=== PATIENT | male | born 1990 | race Native Hawaiian/Other Pacific Islander ===

== ENCOUNTER 2020-07-22 09:01 | Emergency (ER) | payer SELFPAY ==
[~2020-07-22] VITALS: Ht 170 cm; Wt 102.0 kg
--- NOTE | 2020-07-22 09:10 | ED General ---
General Stated Complaint: CHEST PAIN Source of Information: Patient Exam Limitations: No Limitations History of Present Illness Date Seen by Provider: Jul 22, 2020 Time Seen by Provider: 09:09 Initial Comments 29-year-old male presents with right-sided chest wall pain. Patient reports that started 6 days ago after being elbowed while playing basketball. He is tried some Tylenol for it. Presents today because it still hurts when he takes a deep breath or presses against it. He has no fevers chills cough shortness of breath or other systemic complaints. Allergies and Home Medications Allergies Coded Allergies: No Known Drug Allergies (Unverified , 07/22/20) Patient Home Medication List Home Medication List Reviewed: Yes Review of Systems Review of Systems Constitutional: No chills, No fever EENTM: see HPI Respiratory: No cough, No short of breath Cardiovascular: see HPI; No edema, No palpitations Gastrointestinal: No abdominal pain, No nausea, No vomiting Past Punzrsf-Zlimnh-Avbuqo Hx Patient Social History Recent Foreign Travel: No Contact w/Someone Who Travel: No Physical Exam Vital Signs Vital Signs - First Documented 07/22/20 09:12 Temp 36.7 Pulse 82 Resp 16 B/P (MAP) 140/96 (111) Pulse Ox 99 O2 Delivery Room Air Capillary Refill : Height, Weight, BMI Height: '" Weight: lbs. oz. kg; BMI Method: General Appearance: No Apparent Distress, WD/WN HEENT: PERRL/EOMI Neck: Non Tender, Supple Respiratory: Lungs Clear, Normal Breath Sounds, Other (tenderness to the right chest wall, completely reproduces symptoms) Cardiovascular: Regular Rate, Rhythm Gastrointestinal: Non Tender, Soft Extremity: Normal Capillary Refill, Normal Inspection, Normal Range of Motion Neurologic/Psychiatric: Alert, Oriented x3, No Motor/Sensory Deficits, Normal Mood/Affect, merchandise director II-XII Norm as Tested Skin: Normal Color, Warm/Dry Progress/Results/Core Measures Suspected Sepsis SIRS Temperature: Pulse: Respiratory Rate: Blood Pressure / Mean: Results/Orders My Orders Orders - FRANDY BARNHARTVOR L DO Ribs/Unilateral With Chest (07/22/20 09:12) Vital Signs/I&O 07/22/20 09:12 Temp 36.7 Pulse 82 Resp 16 B/P (MAP) 140/96 (111) Pulse Ox 99 O2 Delivery Room Air Capillary Refill : Progress Note : Time: 10:06 Progress Note X-ray shows no acute findings. Patient with likely a bruise rib versus a muscle strain and chest wall. Recommended he start trying some ibuprofen along with some topical lidocaine. Patient stable will be discharged home Diagnostic Imaging Diagonstic Imaging: Xray Plain Films/CT/US/NM/MRI: chest Comments [facility], [facility]. [place], [place] NAME: TRACE DEJESUS [facility] REC#: [id number] PT STATUS: REG ER : 1990 PHYSICIAN: AMBER BARNHART DO ADMIT DATE: 07/22/20/ER Draft Date of Exam:07/22/20 RIBS/UNILATERAL WITH CHEST INDICATION: Injury to the chest with anterior upper and mid right-sided rib pain. TIME OF EXAM: 09:43 a.m. FINDINGS: No displaced rib fracture is identified. No parenchymal contusion, effusion, or pneumothorax is identified. IMPRESSION: No acute abnormality is detected. Dictated on workstation # [id number] Dict: 07/22/20 0954 Trans: 07/22/20 0957 [id number] Interpreted by: JOSE WRAY MD Electronically signed by: Reviewed: Reviewed by Me, Reviewed/Discussed Departure Impression Primary Impression: Chest wall contusion Qualified Codes: S20.211A - Contusion of right front wall of thorax, initial encounter Disposition: HOME, SELF-CARE Condition: Stable Departure-Patient Inst. Referrals: NO,LOCAL PHYSICIAN (PCP/Family) Primary Care Physician Patient Instructions: Bruised Rib (DC) Add. Discharge Instructions: 600-800 mg ibuprofen every 6-8 hours as needed 4% topical lidocaine with menthol to affected area as directed on package AMBER BARNHART DO Jul 22, 2020 09:10
[2020-07-22 09:12] VITALS: BP 140/96
--- NOTE | 2020-07-22 09:58 | Diagnostic Imaging Report ---
INDICATION: Injury to the chest with anterior upper and mid right-sided rib pain. TIME OF EXAM: 09:43 a.m. FINDINGS: No displaced rib fracture is identified. No parenchymal contusion, effusion, or pneumothorax is identified. IMPRESSION: No acute abnormality is detected. Dictated by: Dictated on workstation # [id number]
== END 2020-07-22 10:07 | disposition home or self-care (01) ==
LOC: ER 09:06
DX: S20.211A Contusion of right front wall of thorax, initial encounter (principal); W21.05XA Struck by basketball, initial encounter; Y93.67 Activity, basketball
CPT/HCPCS: 71101